=== PATIENT | male | born 1955 | race Caucasian/White ===

== ENCOUNTER 2021-01-08 07:30 | Outpatient (RCR) | payer MEDICARE, OTHER, SELFPAY ==
--- NOTE | 2020-11-30 09:45 | OTOPEVAL ---
OCCUPATIONAL THERAPY INITIAL EVALUATION REPORT 11/30/20 Thank you for referring Shahbaz Cobian to [facility].? The patient is scheduled to be seen for therapy?2x/week for 2 weeks then tapering down to 1x/week for 2 additional weeks. Please review, sign, date and return this plan of care ELVIA. I agree with and certify that the following plan of care is medically necessary. Referring Physician Date Referring Provider: Abraham Franklin MD *OT Outpatient Evaluation Start: 11/30/20 08:23 Therapy Assessment Status Assessment Status Assessment Status Evaluation Evaluation Information Problem Diagnosis Pain and swelling left middle finger Additional Evaluation Detail 10/12/20 - Open release left middle finger trigger finger 11/09/20 - Percutaneous revision of release of left 3rd A1 paulette Subjective Information Patient reports he is able to Query Text:As Reported By Patient/ do all the things he needs to Family do for himself, but with moderate pain. He states he has had to modify how he lifts and grabs objects. He does note difficulties with holding a wash rag and holding a golf club. Pain Assessment Timing of Pain Assessment Timing of Pain Assessment Assessment Pain Scale Pain Scale Used Numeric (1 - 10) Self Report Pain Assessment Left Hand(s) Reported Pain Level 0 Lowest Pain Intensity 0 Greatest Pain Intensity 10 Pain Score Pain Score 0: Self Report Additional Pain Score Comments Pain at rest: 0/10 Pain with light use: 2/10 Pain with heavy use/grippin/10 Pain at worst : 10/10 Interventions Used Pain Relief Interventions Used By Inactivity/Rest,Medication Patient Upper Extremity Range of Motion Finger Range of Motion Left Middle Finger MCP Joint Flexion - Active 75 Middle Finger MCP Joint Extension - 0 Active Middle Finger PIP Joint Flexion - Active 95 Middle Finger PIP Joint Extension - -25 Active Middle Finger DIP Joint Flexion - Active 70 Middle Finger DIP Joint Extension - -10 Active Finger Range of Motion Comments Tip to DPC: 0.5 cm gap actively; passive is WNL Thumb Range of Motion Left Reason Not Measured WFL/Left Hand Supervisor Electric/Pinch Strength Assessment Hand Right Supervisor Electric Strength (lbs) 112.33 Palmar Pinch Strength (lbs) 15 Left Supervisor Electric Str
--- NOTE | 2021-01-08 08:01 | OTOPEVAL ---
OCCUPATIONAL THERAPY RE-EVALUATION AND D/C NOTE 01/08/21 Patient presents for OT re-evaluation this date following 4 weeks of therapy for left hand pain, decreased ROM, and weakness following trigger finger release and subsequent revision. At this time, the patient's ROM, strength, and functional use have improved to normal limits. He continues to have some residual pain and tenderness in the surgical area, but reporting pain at 1/10 compared to 10/10 at the start of care. He is currently independent with HEP and ready for discharge. Thank you for referring Shahbaz Cobian to [facility] Please review, sign, date and return this D/C Note ELVIA. I agree with and certify that the following plan of care is medically necessary. Referring Physician Date Referring Provider: Abraham Franklin MD *OT Outpatient Re-Evaluation Start: 11/30/20 08:23 Evaluation Information Problem Diagnosis Pain and swelling left middle finger Additional Evaluation Detail 10/12/20 - Open release left middle finger trigger finger 11/09/20 - Percutaneous revision of release of left 3rd A1 paulette 11/30/20 - OT began, 6 sessions total; Therapy has consisted of using modalities and manual treatment for scar and pain management, ROM/tendon gliding, and patient education on not overusing the hand to help reduce tendon inflammation. Subjective Information Patient reports that he has Query Text:As Reported By Patient/ had less pain since beginning Family therapy. He reports, It's so much better. 90% there. 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 He returned to the gym and is able to do a bench press, swing a golf club, and hold a wash rag with a normal fist, but does note lingering sensitivity/ tenderness at the surgical site. Pain Assessment Timing of Pain Assessment Timing of Pain Assessment Re-assessment Pain Scale Pain Scale Used Numeric (1 - 10) Self Report Pain Assessment Left Hand(s) Reported Pain Level 0 Lowest Pain Intensity 0 Greatest Pain Intensity 1 Pain Aggravating Factors Exercise/Activity Other Pain Aggravating Factors Clapping, gripping tightly Pain
== END 2021-01-08 10:43 | disposition home or self-care (01) ==
LOC: ANHOT 07:30
PROVIDERS: PCP Family Medicine; Visit Provider Plastic Surgery
DX: Z48.89 Encounter for other specified surgical aftercare (principal)
CPT/HCPCS: 97018; 97035; 97110; 97140; 97165

== ENCOUNTER 2021-04-29 01:41 | Day surgery (SDC) | payer MEDICARE, OTHER, SELFPAY ==
[2021-04-23 13:38] VITALS: BMI 27.6
[2021-04-29 09:08] VITALS: BP 150/88; PULSE 71; RESP 16; TEMP 36.4; O2SAT 99; BMI 26.7
[2021-04-29] MEDS: LACTATED RINGERS 1,000 ML 150 ML IV CONT (09:20)
[2021-04-29 09:30] LABS: Glucose Point of Care 180 mg/dl (65-105)
--- NOTE | 2021-04-29 09:36 | WPDANESEPPF ---
Anes - Initial Pre Proc Eval Procedure: Operation Date: 04/29/21 09:45 Proposed Procedures p Screening Colonoscopy - Christopher Cooley MD Date/Time: 04/29/21 09:36 Surgeon: Christopher Cooley MD Pre Op Diagnosis: hx of colon polyps Z86.010, family hx of colon ca Patient Data Age: 66 Gender: M Height: 1.88 m Weight: 94.4 kg Last Vital Signs Temp 97.5 F L 04/29/21 09:08 Pulse 71 04/29/21 09:08 Resp 16 04/29/21 09:08 BP 150/88 H 04/29/21 09:08 Pulse Ox 99 04/29/21 09:08 Allergies Allergy/AdvReac Type Severity Reaction Status Date / Time Penicillins Allergy Unknown Skin Verified 04/23/21 13:35 Reaction Sulfa (Sulfonamide Allergy Unknown Skin Verified 04/23/21 13:35 Antibiotics) Reaction Home Medications Medication Instructions Recorded Confirmed Type cholecalciferol (vitamin D3) 50 50 mcg PO DAILY 01/07/20 04/29/21 History mcg (2,000 unit) capsule mecobalamin (vitamin B12) 1,000 1,000 mcg PO DAILY 01/07/20 04/29/21 History mcg chewable tablet multivitamin 1 tablet PO DAILY 01/07/20 04/29/21 History omega-3 fatty acids 1,000 mg 2,000 mg PO DAILY cap 01/07/20 04/29/21 History capsule metformin 500 mg tablet,extended 500 mg PO DAILY #90 tablet 02/22/21 04/29/21 Rx release 24 hr simvastatin 40 mg tablet 40 mg PO DAILY #90 tablet 02/22/21 04/29/21 Rx aspirin 81 mg PO DAILY 04/23/21 04/29/21 History diclofenac sodium 75 mg PO BID 04/23/21 04/29/21 History Laboratory Tests 04/29/21 09:27 POC Capillary Glucose 180 mg/dl H mg/dl (65-105) Patient hx anesthesia problems: none Family hx anesthesia problems: none PMFSH Past Medical History Medical History (Updated 02/22/21 @ 10:02 by Leandro Faulkner MD) Trigger finger, left surgery Surgical History Surgical History (Updated 02/22/21 @ 09:40 by [place] CMA) H/O hernia repair History of elbow surgery History of knee replacement Hx of arthroscopy of shoulder Status post trigger finger release Family History Family History Father Family history of malignant neoplasm of brain Family history of lung cancer Grandparent Cerebrovascular accident Carcinoma of colon Sibling Family history of hepatitis Social History Social History Smoking packs per day: 1 Smoking cigarettes per day: 20.0 Years smoked: 22 Smoking pack-years: 22.00 Smoking status: Former smoker Tobacco type: cigarettes Smoking end date: 04/04/90 Alcohol intake: current Drinks per week: 4 Living arrangements: with family Spiritual care concerns: No Anes - Eval Final PreProcedure Day of Procedure 04/29/21 09:36 Patient weight: overweight Heart: regular rate and rhythm Lungs: clear to auscultation Airway: Mallampati scale class II Neurological: alert and oriented Last oral intake: >/= 8 hours ASA classification: III Emergent: no Anesthetic plan: proceed Anesthesia type and monitoring: general GIVS and standard monitoring Informed Consent: The patient's anesthetic plan and its attendant risks and benefits were discussed with the patient/family/POA. Questions were solicited and answers provided to the satisfaction of the patient/family/POA.
--- NOTE | 2021-04-29 09:52 | WPDGICN ---
Assessment and Plan Assessment and plan (1) History of colon polyps: Code(s): Z86.010 - Personal history of colonic polyps Status: Acute Assessment and Plan: Patient has a prior history of colon polyps for this reason surveillance colonoscopy is recommended at 5 year intervals. (2) Family history of colonic polyps: Code(s): Z83.71 - Family history of colonic polyps Status: Acute Assessment and Plan: Patient's father is reported to have had colon polyps. His grandparent may have had colon cancer. Screening colonoscopy advised at intervals. GI Consult Note Consult date/time: 04/29/21 09:52 HPI: Shahbaz Cobian is a 66 year old male Presents for screening colonoscopy. Patient has a prior history of colon polyps. Most recent colonoscopy by Dr. Rogers was in 2014. Patient's family history is significant that her his father had colon polyps a grandparent may have had colon cancer. Patient reports that his current weight appetite bowel movements are normal. Patient denies abdominal pain. He has had no bleeding. Review of Systems Review of Systems: All systems reviewed & are unremarkable except as noted in HPI and below PMFSH Past Medical History Medical History (Updated 04/29/21 @ 09:54 by Christopher Cooley MD) Trigger finger, left surgery Surgical History Surgical History (Updated 02/22/21 @ 09:40 by Milla Park CMA) H/O hernia repair History of elbow surgery History of knee replacement Hx of arthroscopy of shoulder Status post trigger finger release Family History Family History Father Family history of malignant neoplasm of brain Family history of lung cancer Grandparent Cerebrovascular accident Carcinoma of colon Sibling Family history of hepatitis Social History Social History Smoking packs per day: 1 Smoking cigarettes per day: 20.0 Years smoked: 22 Smoking pack-years: 22.00 Smoking status: Former smoker Tobacco type: cigarettes Smoking end date: 04/04/90 Alcohol intake: current Drinks per week: 4 Living arrangements: with family Spiritual care concerns: No Meds Home Medications and Allergies Home Medications Medication Instructions Recorded Confirmed Type cholecalciferol (vitamin D3) 50 50 mcg PO DAILY 01/07/20 04/29/21 History mcg (2,000 unit) capsule mecobalamin (vitamin B12) 1,000 1,000 mcg PO DAILY 01/07/20 04/29/21 History mcg chewable tablet multivitamin 1 tablet PO DAILY 01/07/20 04/29/21 History omega-3 fatty acids 1,000 mg 2,000 mg PO DAILY cap 01/07/20 04/29/21 History capsule metformin 500 mg tablet,extended 500 mg PO DAILY #90 tablet 02/22/21 04/29/21 Rx release 24 hr simvastatin 40 mg tablet 40 mg PO DAILY #90 tablet 02/22/21 04/29/21 Rx aspirin 81 mg PO DAILY 04/23/21 04/29/21 History diclofenac sodium 75 mg PO BID 04/23/21 04/29/21 History Allergies Allergy/AdvReac Type Severity Reaction Status Date / Time Penicillins Allergy Unknown Skin Verified 04/23/21 13:35 Reaction Sulfa (Sulfonamide Allergy Unknown Skin Verified 04/23/21 13:35 Antibiotics) Reaction Vital Signs Vital Signs - 24 hr 04/29/21 09:08 Temperature 97.5 F L Pulse Rate 71 Respiratory Rate 16 Blood Pressure 150/88 H Pulse Oximetry 99 Exam Narrative: Physical exam reveals patient be alert. Vital signs stable. HEENT exam is unremarkable. Patient is anicteric. Lungs are clear to auscultation and percussion. Heart is without murmur or extra sounds. Abdominal exam bowel sounds are present soft nontender with no organomegaly. Digital external rectal exam is normal.
[2021-04-29 10:22] VITALS: BP 119/83; PULSE 65; RESP 24; O2SAT 97
[2021-04-29 10:32] VITALS: BP 112/86; PULSE 70; RESP 25; O2SAT 97
[2021-04-29 10:42] VITALS: BP 134/95; PULSE 65; RESP 15; O2SAT 99
== END 2021-04-29 10:54 | disposition home or self-care (01) ==
PROVIDERS: PCP Family Medicine; Visit Provider Internal Medicine Gastroenterology
PROC: 0DJD8ZZ Inspection of Lower Intestinal Tract, Via Natural or Artificial Opening Endoscopic (ICD-10-PCS; CPT 45378; principal; 2021-04-29 09:45)
DX: Z12.11 Encounter for screening for malignant neoplasm of colon (principal); K57.30 Diverticulosis of large intestine without perforation or abscess without bleeding; K64.8 Other hemorrhoids; Z86.010 Personal history of colon polyps; Z83.71 Family history of colonic polyps; Z96.659 Presence of unspecified artificial knee joint; Z87.891 Personal history of nicotine dependence; Z79.899 Other long term (current) drug therapy
CPT/HCPCS: G0105; 82948; J2704; J7120

== ENCOUNTER 2021-09-02 21:34 | Emergency (ER) | payer MEDICARE, OTHER, SELFPAY ==
--- NOTE | ~2021-09-02 | CT_ITS ---
EXAMINATION: CT brain wo con DATE: 09/03/2021 00:39 INDICATION: Left-sided headache. TECHNIQUE: Computed tomography (CT) of the head was performed without intravenous contrast. The mA wa s adjusted according to patient size. Iterative reconstruction technique was employed. The dose-lengt h product was 605.33 mGy-cm. COMPARISON: None FINDINGS: There is no intracranial hemorrhage, acute infarction, or abnormal intracranial mass lesion . There are scattered areas of low attenuation in the cerebral white matter. The ventricles are velia l in size. The orbits are normal. There is mild mucosal thickening in the ethmoid sinuses. The mastoi d air cells are normal. IMPRESSION: 1. Mild nonspecific cerebral white matter disease, which likely represents chronic small vessel ische ed disease. Reviewed, dictated and finalized at location A. ING TOWER OPERATOR IMPRESSION: 1. Mild nonspecific cerebral white matter disease, which likely represents data developer javier small vessel ischemic disease.
[2021-09-02 21:41] VITALS: BP 172/89; PULSE 79; RESP 16; TEMP 36.5; O2SAT 99
[2021-09-02 23:21] VITALS: BP 161/98; PULSE 70; RESP 16; O2SAT 98
[2021-09-03 00:17] VITALS: BP 141/87; PULSE 64; RESP 18; O2SAT 96
--- NOTE | 2021-09-03 00:53 | ED.HA ---
HPI - Headache General Chief Complaint: Headache Stated Complaint: headache Time Seen by Provider: 09/02/21 23:21 History of Present Illness HPI Narrative: Patient is a 66-year-old male who presents ER with headache. Reports he began earlier in the evening. Severe left-sided and stabbing. He took ibuprofen and it has now resolved. No focal neurologic deficit with this. No trauma. Reports he has had sinus congestion over the last couple weeks that has been increasing typical. He has had some thick green drainage that has now improved. No tearing or rhinorrhea with the headache. Related Data Home Medications Medication Instructions Recorded Confirmed cholecalciferol (vitamin D3) 50 50 mcg PO DAILY 01/07/20 08/10/21 mcg (2,000 unit) capsule mecobalamin (vitamin B12) 1,000 1,000 mcg PO DAILY 01/07/20 08/10/21 mcg chewable tablet multivitamin 1 tablet PO DAILY 01/07/20 08/10/21 omega-3 fatty acids 1,000 mg 2,000 mg PO DAILY cap 01/07/20 08/10/21 capsule aspirin 81 mg PO DAILY 04/23/21 08/10/21 pyridoxine (vitamin B6) 100 mg 50 mg PO DAILY 08/10/21 08/10/21 tablet Allergies Allergy/AdvReac Type Severity Reaction Status Date / Time Penicillins Allergy Unknown Skin Verified 09/02/21 21:46 Reaction Sulfa (Sulfonamide Allergy Unknown Skin Verified 09/02/21 21:46 Antibiotics) Reaction Review of Systems Review of Systems: All systems reviewed & are unremarkable except as noted in HPI and below Constitutional: Constitutional: Denies chills, Denies fever(s) and Denies weakness ENT: Denies nasal congestion and Denies sore throat Gastrointestinal: Gastrointestinal: Denies abdominal pain, Denies nausea and Denies vomiting Neurologic: Denies syncope, Reports headache(s), Denies focal weakness and Denies numbness Psychiatric: Psychiatric: Denies anxiety and Denies depression [facility] Past Medical History Medical History Trigger finger, left surgery Surgical History Surgical History H/O hernia repair History of elbow surgery History of knee replacement Hx of arthroscopy of shoulder Status post trigger finger release Family History Family History Father Family history of malignant neoplasm of brain Family history of lung cancer Grandparent Cerebrovascular accident Carcinoma of colon Sibling Family history of hepatitis Social History Social History Smoking packs per day: 1 Smoking cigarettes per day: 20.0 Years smoked: 22 Smoking pack-years: 22.00 Tobacco type: cigarettes Smoking end date: 04/04/90 Alcohol intake: current Drinks per week: 4 Spiritual care concerns: No Exam Narrative: GENERAL: Well-appearing, well-nourished, and in no acute distress. HEAD: Normocephalic, atraumatic. EYES: PERRL and EOMI. ENT: Mucous membranes moist. CHEST: Clear to auscultation. No respiratory distress. HEART: Regular rate and rhythm. Normal peripheral pulses. EXTREMITIES: Normal range of motion. No edema. SKIN: Warm, dry, no rash. NEURO: Alert and oriented x3. No focal neurologic deficit.. PSYCH: Normal mood and affect. Course Course Emergency Course: Informed results. Discharge home. Vital Signs Vital signs: Vital Signs Temperature 97.7 F 09/02/21 21:41 Pulse Rate 79 09/02/21 21:41 Respiratory Rate 16 09/02/21 21:41 Blood Pressure 172/89 H 09/02/21 21:41 Pulse Oximetry 99 09/02/21 21:41 Temperature 97.7 F 09/02/21 21:41 Pulse Rate 60 09/03/21 01:12 Respiratory Rate 14 09/03/21 01:12 Blood Pressure 144/82 H 09/03/21 01:12 Pulse Oximetry 100 09/03/21 01:12 MDM - Headache Imaging Data Radiologist's impression: CT head: No acute intracranial abnormality. Discharge Plan Discharge Clinical Impression: Headac
[2021-09-03 01:12] VITALS: BP 144/82; PULSE 60; RESP 14; O2SAT 100
[2021-09-03 02:01] VITALS: BP 144/82; PULSE 61; RESP 12; O2SAT 96
== END 2021-09-03 02:04 | disposition home or self-care (01) ==
PROVIDERS: Emergency Provider Emergency Medicine; PCP Family Medicine
DX: R51.9 Headache, unspecified (principal); Z96.659 Presence of unspecified artificial knee joint; Z87.891 Personal history of nicotine dependence; Z79.82 Long term (current) use of aspirin
CPT/HCPCS: 70450; 99284

== ENCOUNTER → 2022-06-10 09:54 | Outpatient (CLI) | payer MEDICARE, OTHER, SELFPAY ==
--- NOTE | ~2022-06-10 | XR_ITS ---
EXAMINATION: XR thoracic spine 3V DATE: 06/10/2022 10:19 INDICATION: Back pain. TECHNIQUE: 3 views of thoracic spine were obtained. COMPARISON: Chest 2 views 06/03/2016 FINDINGS: There is 5 degrees dextrocurvature of thoracic spine. There is kyphosis of thoracic spine. Again seen is mild chronic anterior wedging of T7, T8, and T11 vertebral bodies. There is mildly decr eased disc height at T7-T8 and T8-T9. There are endplate osteophytes at all levels. IMPRESSION: 1. Mild thoracic spondylosis. 2. Thoracic kyphosis. Reviewed, dictated and finalized at location B.
--- NOTE | ~2022-06-10 | XR_ITS ---
EXAMINATION: XR lumbar spine 2-3V DATE: 06/10/2022 10:19 INDICATION: Low back pain, unspecified. TECHNIQUE: 3 views of lumbar spine were obtained. COMPARISON: CT abdomen and pelvis 07/28/2010 FINDINGS: There is 4 degrees levocurvature of lumbar spine. There is mildly decreased disc height at L3-L4 and L5-S1. There are endplate osteophytes at all levels. There is multilevel mild to moderate f acet joint osteoarthritis. IMPRESSION: 1. Mild lumbar spondylosis. Reviewed, dictated and finalized at location B. IMPRESSION: 1. Mild lumbar spondylosis.
== END ==
PROVIDERS: PCP Physician Assistant; Visit Provider Physician Assistant
DX: M47.896 Other spondylosis, lumbar region (principal); M47.894 Other spondylosis, thoracic region
CPT/HCPCS: 72072; 72100

== ENCOUNTER → 2023-02-21 13:29 | Outpatient (CLI) | payer MEDICARE, OTHER, SELFPAY ==
--- NOTE | ~2023-02-21 | XR_ITS ---
Right Hand Technique: PA, oblique, and lateral views were obtained. Clinical History: Osteoarthritis Findings: No acute fracture or dislocation is seen. Osseous alignment is anatomic. There is minimal d egenerative change at the interphalangeal joint of the thumb. Remaining joint spaces appear intact. S oft tissues are unremarkable. Impression: Minimal degenerative change at the interphalangeal joint of the thumb. Reviewed, dictated and finalized at location M. Impression: Minimal degenerative change at the interphalangeal joint of the thumb.
== END ==
PROVIDERS: PCP Plastic Surgery; Visit Provider Plastic Surgery
DX: M19.041 Primary osteoarthritis, right hand (principal)
CPT/HCPCS: 73130

== ENCOUNTER 2023-06-23 07:30 | Outpatient (CLI) | payer MEDICARE, OTHER, SELFPAY ==
--- NOTE | 2023-06-23 08:27 | ECG_ITS ---
Measurements Intervals [place]way Rate: 60 P: 17 AK: 203 QRS: 39 QRSD: 99 T: 43 QT: 372 QTc: 372 Interpretive Statements SINUS RHYTHM NO PREVIOUS ECG AVAILABLE FOR COMPARISON Electronically Signed On 06-23-2023 13:34:32 CDT by April Pena MD
[2023-06-23 09:01] LABS: Basophils Percent Auto 0.4 % (0.2-1.2); Eosinophils Absolute Auto 0.1 K/mm3 (0-0.3); Hematocrit 43.7 % (42.0-52.0); Hemoglobin 14.6 g/dL (14.0-18.0); Immature Granulocyte Absolute 0.01 K/mm3 (0.00-0.031); Immature Granulocyte Percent A 0.2 % (0-0.5); Lymphocytes Absolute Auto 1.56 K/mm3 (0.9-3.2); Lymphocytes Percent Auto 31.8 % (18.3-44.2); Mean Corpuscular HGB Conc 33.4 g/dl (32-36); Mean Corpuscular Hemoglobin 30.4 pg (26-34); Mean Platelet Volume 10.1 fl (7.4-10.4); Monocytes Absolute Auto 0.5 K/mm3 (0.1-0.6); Monocytes Percent Auto 9.2 % (2.6-8.5); Neutrophils Absolute Auto 2.8 K/mm3 (1.3-6.7); Neutrophils Percent Auto 57.4 % (45.5-73.1); Platelet Count Result 202 k/mm3 (150-375); Red Cell Distribution Width 12.7 % (11.5-14.5); White Blood Count 4.9 K/mm3 (4.5-10.0)
[2023-06-23 09:10] LABS: Albumin Level 4.7 g/dL (3.5-5.1); Anion Gap 7 mmol/L (8-16); Blood Urea Nitrogen 21 mg/dL (9-20); Calcium 9.4 mg/dL (8.4-10.2); Carbon Dioxide 29 mmol/L (22-30); Chloride 102 mmol/L (98-107); Estimated Glomerular Filt Rate > 60; Glucose 132 mg/dL (65-110); Potassium 4.4 mmol/L (3.4-5.0); Sodium 138 mmol/L (137-145)
[2023-06-23 09:14] LABS: Urine Cotinine NEGATIVE
== END 2023-06-23 07:31 | disposition home or self-care (01) ==
LOC: ANHSURGERY 07:42
PROVIDERS: PCP Family Medicine; Visit Provider Orthopaedic Surgery
DX: M17.12 Unilateral primary osteoarthritis, left knee (principal); Z01.818 Encounter for other preprocedural examination
CPT/HCPCS: 80048; 80307; 82040; 83036; 85025; 87081; 87147; 87181; 87186; 93005

== ENCOUNTER 2023-08-02 08:08 | Outpatient (CLI) | payer MEDICARE, OTHER, SELFPAY | END 2023-08-02 08:09 | disposition home or self-care (01) | LOC: ANHSURGERY 08:15 | PROVIDERS: PCP Family Medicine; Visit Provider Orthopaedic Surgery | DX: M17.12 Unilateral primary osteoarthritis, left knee (principal); Z01.818 Encounter for other preprocedural examination | CPT/HCPCS: 36415; 86850; 86900; 86901 ==

== ENCOUNTER 2023-08-07 01:55 | Day surgery (SDC) | payer MEDICARE, OTHER, SELFPAY ==
--- NOTE | 2023-06-23 07:34 | PC.NURSE ---
PRE-OP INSTRUCTIONS, PLEASE READ CAREFULLY Report to the Outpatient Waiting Room, entrance under the green pavilion located off [facility], at time _0600_ on date _07/17/23_. Planned Procedure Time: _0730_. PACK A SMALL OVERNIGHT BAG AND LEAVE IN THE CAR ALONG WITH YOUR WALKER Time changes happen often and if your time is changed the preop area will call you the afternoon before. - You and your visitor will be asked to self-screen and do not enter if you have any COVID symptoms. - A mask is optional within the hospital at this time. -VISITING HOURS 8AM-8PM Patients may have clear liquids (water, carbonated beverages, clear teas, apple juice) until 3 hours prior to surgery (0430 AM) with a maximum of 20 ounces. - No food from midnight until time of surgery Take the following medications with a SIP of water the morning of surgery: _TYLENOL IF NEEDED_ DO NOT STOP ANY OF YOUR OTHER PRESCRIPTION MEDICATIONS PRIOR TO SURGERY ?EXCEPT THE FOLLOWING Medications to discontinue per DR. LEY - _VITAMINS/SUPPLEMENTS/IBUPROFEN 7 DAYS PRIOR TO SURGERY, Date to take last dose 07/09/23 (PER PT)_ Please no make-up, nail serbian, hairspray, perfume, deodorant, or body powder the day of surgery. No jewelry (including any body piercings) or valuables the day of surgery, leave them at home. Please take a shower or bath the night before, or the morning of, surgery with an antibacterial soap. Wear comfortable, loose fitting clothing. - Jewelry must be removed prior to entering the operating room. Rings and piercings that are not removed may be cut off. - The hospital will not accept responsibility for valuables. - Please leave all valuables, including medications, at home the day of surgery. If you are going home after surgery, a licensed local truck driver must drive you home. - NO public transportation without another adult if you receive anesthesia. - We recommend that an adult stay with you for 24 hours following discharge. - We also recommend that you do not drive, make important decision, drink alcoholic beverages, or take any drugs that were not prescribed by your health care provider for at least 24 hours after your discharge time. Follow any additional instructions given to you from your surgeon. If you or anyone in your household have experienced Covid symptoms in the past week, please notify your surgeon or the nurse liaison at the phone number below for possible testing. Instructions given to _PATIENT_and asked if any additional questions and then verbalized understanding. Patient advised to call surgeon office or pre surgery nurse liaison [phone] if any additional questions.
[2023-06-23 08:03] VITALS: BP 130/74; PULSE 68; RESP 20; TEMP 36.7; O2SAT 100; BMI 26.3
--- NOTE | 2023-07-31 14:01 | PC.NURSE ---
Report to the Outpatient Waiting Room, entrance under the green pavilion located off [facility], at time _0600_ on date _[id number]_. Planned Procedure Time: _0730_. Time changes happen often and if your time is changed the preop area will call you the afternoon before. - You and your visitor will be asked to self-screen and do not enter if you have any COVID symptoms. - A mask is optional within the hospital at this time. Patients may have clear liquids (water, carbonated beverages, clear teas, apple juice) until 3 hours prior to surgery with a maximum of 20 ounces. - No food from midnight until time of surgery Take the following medications with a SIP of water the morning of surgery: __None DO NOT STOP ANY OF YOUR OTHER PRESCRIPTION MEDICATIONS PRIOR TO SURGERY ?EXCEPT THE FOLLOWING Medications to discontinue per physician __All vitamins Date to take last zeuw___[id number] Please no make-up, nail belarusian, hairspray, perfume, deodorant, or body powder the day of surgery. No jewelry (including any body piercings) or valuables the day of surgery, leave them at home. Please take a shower or bath the night before, or the morning of, surgery with an antibacterial soap. Wear comfortable, loose fitting clothing. - Jewelry must be removed prior to entering the operating room. Rings and piercings that are not removed may be cut off. - The hospital will not accept responsibility for valuables. - Please leave all valuables, including medications, at home the day of surgery. If you are going home after surgery, a licensed horse and wagon driver must drive you home. - NO public transportation without another adult if you receive anesthesia. - We recommend that an adult stay with you for 24 hours following discharge. - We also recommend that you do not drive, make important decision, drink alcoholic beverages, or take any drugs that were not prescribed by your health care provider for at least 24 hours after your discharge time. Follow any additional instructions given to you from your surgeon. If you or anyone in your household have experienced Covid symptoms in the past week, please notify your surgeon or the nurse liaison at the phone number below for possible testing. Telephone instructions given to __Joseph__and asked if any additional questions and then verbalized understanding. Patient advised to call surgeon office or pre surgery nurse liaison [phone] if any additional questions.
--- NOTE | 2023-08-04 08:00 | PM.IMHP ---
H&P: HPI History of Present Illness Date/Time: 08/04/23 08:00 Chief Complaint: Left knee DJD Narrative: 68-year-old male patient of Dr. Salazar who presents today for a left total knee arthroplasty. Patient has moderately severe patellofemoral osteoarthritis. He has been treating this nonsurgically for several years. At this point he is not getting improvement from nonsurgical treatment. He has been taking ibuprofen 600 mg twice a day. He had a Monovisc injection in February of this year with minimal improvement of his symptoms. At this point he feels he is ready proceed with total knee arthroplasty rather than continue nonsurgical treatment. Review of Systems Review of Systems: All systems reviewed & are unremarkable except as noted in HPI and below PMFSH Past Medical History Medical History Trigger finger, left surgery Surgical History Surgical History H/O hernia repair History of elbow surgery History of knee replacement Hx of arthroscopy of shoulder Status post trigger finger release Family History Family History Father Family history of malignant neoplasm of brain Family history of lung cancer Grandparent Cerebrovascular accident Carcinoma of colon Sibling Family history of hepatitis Social History Social History Social History: Caffeine-daily Smoking packs per day: 1 Smoking cigarettes per day: 20.0 Years smoked: 22 Smoking pack-years: 22.00 Smoking status: Former smoker Tobacco type: cigarettes Second hand tobacco smoke exposure: No Smoking end date: 04/04/90 Additional smoking assessment comments: PT DENIES ALL FORMS OF TOBACCO USE Alcohol intake: current Drinks per week: 4 Alcohol use details: beer/wine Substance use: never Substance use type: does not use Lack of Transportation: No Lack of Food: Never True Current Housing: I Have Housing Concerned About Future Housing: No Difficulty Paying Gas/Electric Bills: No Difficulty Paying for Meds: No Currently Unemployed: No Education: Bachelor's Degree Difficulty w/ Childcare or Family Care: No Living arrangements: with family Spiritual care concerns: No Meds Home Medications and Allergies Home Medications Medication Instructions Recorded Confirmed Type multivitamin 1 tablet PO DAILY 05/05/20 11/27/23 History metformin 500 mg tablet,extended See Rx Instructions .Route 06/19/23 07/31/23 Rx release 24 hr .COMPLEX #180 tabs olmesartan 20 mg tablet See Rx Instructions .Route 06/19/23 07/31/23 Rx .COMPLEX #90 tabs simvastatin 40 mg tablet See Rx Instructions .Route 06/19/23 07/31/23 Rx .COMPLEX #90 tabs cholecalciferol (vitamin D3) 50 50 mcg PO DAILY 07/31/23 07/31/23 History mcg (2,000 unit) tablet (Vitamin D3) cyanocobalamin (vitamin B-12) 1,000 mcg PO DAILY 07/31/23 07/31/23 History 1,000 mcg tablet (Vitamin B-12) omega 7-ykd-kxp-fish oil 1,200 mg 1 cap PO BID 07/31/23 07/31/23 History (144 mg-216 mg) capsule (Fish Oil) Allergies Allergy/AdvReac Type Severity Reaction Status Date / Time Penicillins Allergy Unknown SERVERE Verified 07/31/23 13:54 HIVES Sulfa (Sulfonamide Allergy Unknown SERVERE Verified 07/31/23 13:54 Antibiotics) HIVES Exam Narrative: 68-year-old male he is 6 ft 2 and 215 lb. He has trace effusion the left knee. Range of motion is from 0-140 degrees. He has normal stability in the knee. There is no tenderness over the medial or lateral joint line. He has severe pain with patellofemoral grind and inhibition testing. Hip range of motion is full without discomfort. Negative Stinchfield maneuver. There is no edema in the lower extremities. He has normal sensation to light touch to both lower extremitie
[2023-08-07] VITALS (12 sets, daily range): BP systolic 114–159; BP diastolic 60–98; PULSE 63–97; RESP 14–21; TEMP 36.4–36.6; O2SAT 96–100
--- NOTE | ~2023-08-07 | XR_ITS ---
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 Subcutaneous gas with fluid and air in the joint and overlying skin turner are consistent with recent surgery. No evidence of pe riprosthetic fracture. IMPRESSION: 1. Recent left total knee arthroplasty. Reviewed, dictated and finalized at location B. INSTRUCTOR
[2023-08-07] MEDS: ACETAMINOPHEN 500 MG TABLET 1000 MG PO ×3 (06:29→20:27)
[2023-08-07] MEDS: LACTATED RINGERS 1,000 ML 30 ML IV CONT ×2 (06:40→11:38)
[2023-08-07 07:00] LABS: Glucose Point of Care 150 mg/dl (65-105)
--- NOTE | 2023-08-07 07:12 | WPDANESEPPF ---
Anes - Initial Pre Proc Eval Procedure: Operation Date: 08/07/23 07:30 Proposed Procedures p Left Total Knee Arthroplasty - Emil Morales MD Date/Time: 08/07/23 07:12 Surgeon: Emil Morales MD Pre Op Diagnosis: O A Lt knee Patient Data Age: 68 Gender: M Height: 1.88 m Weight: 90.8 kg Last Vital Signs Temp 98.0 F 06/23/23 08:03 Pulse 68 06/23/23 08:03 Resp 20 06/23/23 08:03 BP 130/74 06/23/23 08:03 Pulse Ox 100 06/23/23 08:03 O2 Del Method Room Air 06/23/23 08:03 Allergies Allergy/AdvReac Type Severity Reaction Status Date / Time Penicillins Allergy Unknown SERVERE Verified 08/07/23 06:14 HIVES Sulfa (Sulfonamide Allergy Unknown SERVERE Verified 08/07/23 06:14 Antibiotics) HIVES Home Medications Medication Instructions Recorded Confirmed Type multivitamin 1 tablet PO DAILY 01/07/20 08/07/23 History metformin 500 mg tablet,extended See Rx Instructions .Route 06/19/23 08/07/23 Rx release 24 hr .COMPLEX #180 tabs olmesartan 20 mg tablet See Rx Instructions .Route 06/19/23 08/07/23 Rx .COMPLEX #90 tabs simvastatin 40 mg tablet See Rx Instructions .Route 06/19/23 08/07/23 Rx .COMPLEX #90 tabs cholecalciferol (vitamin D3) 50 50 mcg PO DAILY 07/31/23 08/07/23 History mcg (2,000 unit) tablet (Vitamin D3) cyanocobalamin (vitamin B-12) 1,000 mcg PO DAILY 07/31/23 08/07/23 History 1,000 mcg tablet (Vitamin B-12) omega 7-qbb-exc-fish oil 1,200 mg 1 cap PO BID 07/31/23 08/07/23 History (144 mg-216 mg) capsule (Fish Oil) Laboratory Tests 08/07/23 06:56 POC Capillary Glucose 150 H mg/dl (65-105) Patient hx anesthesia problems: none Family hx anesthesia problems: none Results Review: All pre-operative results and documents have been reviewed as part of the pre-operative evaluation. [facility] Past Medical History Medical History Trigger finger, left surgery Surgical History Surgical History H/O hernia repair History of elbow surgery History of knee replacement Hx of arthroscopy of shoulder Status post trigger finger release Family History Family History Father Family history of malignant neoplasm of brain Family history of lung cancer Grandparent Cerebrovascular accident Carcinoma of colon Sibling Family history of hepatitis Social History Social History Social History: Caffeine-daily Smoking packs per day: 1 Smoking cigarettes per day: 20.0 Years smoked: 22 Smoking pack-years: 22.00 Smoking status: Former smoker Tobacco type: cigarettes Second hand tobacco smoke exposure: No Smoking end date: 04/04/90 Additional smoking assessment comments: PT DENIES ALL FORMS OF TOBACCO USE Alcohol intake: current Drinks per week: 4 Alcohol use details: beer/wine Substance use: never Substance use type: does not use Lack of Transportation: No Lack of Food: Never True Current Housing: I Have Housing Concerned About Future Housing: No Difficulty Paying Gas/Electric Bills: No Difficulty Paying for Meds: No Currently Unemployed: No Education: Bachelor's Degree Difficulty w/ Childcare or Family Care: No Living arrangements: with family Spiritual care concerns: No Anes - Eval Final PreProcedure Day of Procedure 08/07/23 07:12 Patient weight: normal Heart: regular rate and rhythm Lungs: clear to auscultation Airway: Mallampati scale class III Neurological: alert and oriented Last oral intake: >/= 8 hours ASA classification: III Emergent: no Anesthetic plan: proceed Anesthesia type and monitoring: general ETT and standard monitoring Results Review: All pre-operative results and documents have been reviewed as part of the pre-operative evaluation
[2023-08-07] MEDS: TRANEXAMIC ACID 1,000MG/ISO100 1,000 MG/100 ML BAG 200 MG IVPB (07:22)
[2023-08-07] MEDS: ceFAZolin 2 GM/D5W 50 ML 2 GM/50 ML BAG IVPB (07:39)
[2023-08-07] MEDS: ceFAZolin SODIUM 1 GM VIAL 3 GM (08:00)
[2023-08-07] MEDS: TRANEXAMIC ACID 1,000 MG/10 ML AMPUL 1000 MG IV PUSH (10:32)
[2023-08-07] MEDS: ceFAZolin SODIUM 1 GM VIAL IV PUSH (10:32)
--- NOTE | 2023-08-07 11:27 | W.PM.PROC2 ---
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 The left knee was prepped draped usual the usual fashion. Received 2 g of Ancef weight based vancomycin 1 g of TXA preoperatively. Limb was exsanguinated tourniquet elevated to 250 mmHg. 7 in longitudinal midline incision was used. His skin was on the thinner side and I felt that standard parapatellar approach would be safest. This was performed. Infrapatellar fat pad partially excised quadriceps synovectomy carried out. The patella was severely worn centrally. There is milder cartilage loss in the lateral femoral condyle 1 area of full-thickness cartilage loss central lateral trochlear ridge. The patella measured 21 mm in thickness measuring off the central eburnation of bone and we cut the patella to 15 mm. Bone quality was very good. Protector cap applied. A guide alex was inserted down the femoral canal after aspiration of canal contents using the 5 degree valgus cutting bushing 9 mm of bone removed the distal femur. Next the tibial plateau was cut. Initial cut was just under the articular surface. PCL was recessed meniscal remnants were excised and 90? we were too tight medially to insert the 8 mm spacer block. Therefore an additional 2 mm of bone removed from the tibial plateau. Alignment was confirmed. This allowed the 8 mm spacer block medially at 90? and laterally the gap was 14 mm. This was an unusual amount of distraction the lateral compartment side. Lateral capsule IT band structures were still intact. Popliteus was preserved. Femur was sized and I elected to use 5? of external rotation. The size 70 vanguard seemed to be the proper with but this was going to notch so we used the 72.5 AP and chamfer cuts were made. 72.5 was a little too wide. This point we were still looser laterally at 90? than medially. The tibia was sized to a size 75 which fit line to line anteromedial to posterolateral at proper rotation this was punched and we trialed with the 10 . This had appropriate tightness medially but was a bit loose laterally. I felt that there would be better medial to lateral balance in flexion by incorporating additional external rotation on the femur. The other 1 option would be to release medial capsule but he does not have a varus deformity preoperatively that would have led him a left him loose medially in extension. We removed the medial fixation pin from the size 70 cutting block and seated at externally rotating at 2? and pinning it with spring pins into place in this allowed us to remove another mm and half To 2 mm of bone posteriorly from the medial side and minimized any notching as result. chamfer cuts revisited and we trialed with the 11 . The 12 seemed a little bit snug in flexion. lacking full extension, An additional 2 mm of bone removed the distal femur and on re trialing the knee had a barely positive bounce lacking removed the degree of or 2 of extension with no significant varus valgus play you have in extension therefore an additional mm and half of bone was removed the distal femur using the 3 mm cutting slot and on read trialing knee came out to full extension with 2 mm of medial lateral play who valgus and varus stress. Posterior femoral bone had been already removed. Satisfied with this the lug holes were drilled in the femur and the patella was prepared for a 34 thin patella lug holes drilled. We had put the tourniquet down at 90 minutes earlier and at this point the limb was exsanguinated and tourniquet elevated to 250 mmHg. Step drill was used to make multiple perforations in his distal femur and 2 plateau which had excellent bone quality and density. The bony surfaces were
--- NOTE | 2023-08-07 11:46 | PM.OP ---
Procedure Note - Brief Procedure Note - Brief Date of procedure: 08/07/23 O A Lt knee Procedure performed: Left total knee arthroplasty Surgeon: KRISTIN Quintero Findings: 68-year-old male who underwent left total knee on the plan is the on 08/07. I was involved in the procedure including positioning the patient on the OR table as well his 1st assisting through the time surgery. Total time spent with 3-1/2 hours
[2023-08-07] MEDS: fentaNYL CITRATE INJ (*CRX) 100 MCG/2 ML VIAL 25 MCG IV PUSH ×7 (11:48→12:21)
[2023-08-07] MEDS: KETOROLAC 15 MG/ML VIAL (*BKC) IV PUSH ×3 (12:10→18:36)
[2023-08-07 12:18] LABS: Glucose Point of Care 197 mg/dl (65-105)
[2023-08-07] MEDS: HYDROmorphone HCL INJ (*CRX) 1 MG/ML SYR 0.5 MG IV PUSH ×3 (12:28→12:50)
[2023-08-07] MEDS: SODIUM CHLORIDE 0.9% IV 1,000 ML 125 ML IV CONT (13:51)
[2023-08-07] MEDS: oxyCODONE HCL (*CRX) 5 MG TAB IR PO ×3 (13:52→20:28)
--- NOTE | 2023-08-07 14:02 | ADMGEN ---
This patient, Shahbaz Cobian, was admitted to [address] [place] [address] Room 310-01. Patient/family oriented to hospital policies and general routines including ID bracelet, bed and alarms, visiting hours, pain management, procedures, bathroom and other care routines, personal items, smoking policy, room service/diet, and visiting hours. Information on how to activate the Rapid Response Team has been discussed. Patient/Family are encouraged to report perceived risks to care and to ask questions if they do not understand what they are told or what they should do.
[2023-08-07] MEDS: metFORMIN HCL XR 500 MG TAB.SR.24H PO (16:22)
[2023-08-07] MEDS: ceFAZolin 1 GM/NS 50 ML 1 GM/50 ML BAG IVPB (16:22)
[2023-08-07] MEDS: SENNA/DOCUSATE SODIUM TABLET 2 TAB PO (16:22)
[2023-08-07] MEDS: VANCOMYCIN 1,000 MG/NS 250 ML 1,000 MG/250 ML BAG 250 MG IVPB (17:54)
[2023-08-07] MEDS: SIMVASTATIN 20 MG TABLET 40 MG BY MOUTH (20:27)
[2023-08-07] MEDS: FAMOTIDINE 20 MG TABLET PO (20:27)
[2023-08-08 00:18] VITALS: BP 153/85; PULSE 76; RESP 16; TEMP 36.1; O2SAT 100
[2023-08-08] MEDS: ceFAZolin 1 GM/NS 50 ML 1 GM/50 ML BAG IVPB ×2 (00:58→08:17)
[2023-08-08] MEDS: ACETAMINOPHEN 500 MG TABLET 1000 MG PO ×3 (01:04→14:44)
[2023-08-08] MEDS: oxyCODONE HCL (*CRX) 5 MG TAB IR PO ×5 (01:04→14:44)
[2023-08-08 04:17] VITALS: BP 145/78; PULSE 73; RESP 16; TEMP 36.1; O2SAT 99
[2023-08-08] MEDS: VANCOMYCIN 1,000 MG/NS 250 ML 1,000 MG/250 ML BAG 250 MG IVPB (06:00)
[2023-08-08 06:58] LABS: Basophils Percent Auto 0.1 % (0.2-1.2); Eosinophils Percent Auto 0.1 % (0-4.4); Hematocrit 35.9 % (42.0-52.0); Hemoglobin 12.2 g/dL (14.0-18.0); Immature Granulocyte Absolute 0.07 K/mm3 (0.00-0.031); Immature Granulocyte Percent A 0.5 % (0-0.5); Lymphocytes Percent Auto 14.7 % (18.3-44.2); Mean Corpuscular Volume 91.1 fl (80-100); Mean Platelet Volume 9.7 fl (7.4-10.4); Monocytes Absolute Auto 1.1 K/mm3 (0.1-0.6); Monocytes Percent Auto 7.6 % (2.6-8.5); Neutrophils Absolute Auto 11.5 K/mm3 (1.3-6.7); Platelet Count Result 196 k/mm3 (150-375); Red Blood Count 3.94 M/mm3 (4.6-6.20); Red Cell Distribution Width 12.8 % (11.5-14.5)
[2023-08-08 07:12] LABS: Alanine Aminotransferase 25 U/L (6-50); Alkaline Phosphatase 41 U/L (38-126); Anion Gap 7 mmol/L (8-16); Aspartate Amino Transferase 24 U/L (17-59); Bilirubin,Total 0.7 mg/dL (0.2-1.3); Blood Urea Nitrogen 21 mg/dL (9-20); Calcium 8.9 mg/dL (8.4-10.2); Carbon Dioxide 26 mmol/L (22-30); Chloride 104 mmol/L (98-107); Estimated CRCL calculation 88 ml/min; Estimated Glomerular Filt Rate > 60; Glucose 125 mg/dL (65-110); Potassium 4.5 mmol/L (3.4-5.0); Sodium 137 mmol/L (137-145)
--- NOTE | 2023-08-08 07:27 | P.PNAN_ITS ---
Anes - Prog Note Post-Op Date/Time: 08/08/23 07:27 Cardiovascular status: normal Respiratory status: normal Airway patency: baseline Mental status: baseline Post-Op hydration status: normal Vital Signs: Last Vital Signs Temp 36.1 C L 08/08/23 04:17 Pulse 73 08/08/23 04:17 Resp 16 08/08/23 04:17 BP 145/78 H 08/08/23 04:17 Pulse Ox 99 08/08/23 04:17 O2 Del Method Room Air 08/07/23 15:05 O2 Flow Rate 10 08/07/23 11:38 Pain Score (VAS): 3 I/O: Intake & Output 08/07/23 08/07/23 08/08/23 15:59 23:59 07:59 Intake Total 1050 540 600 Output Total 3400 Balance 1050 540 -2800 Laboratory Tests 08/08/23 06:29 08/08/23 06:29 08/07/23 08/08/23 12:16 06:29 WBC 15.0 H RBC 3.94 L Hgb 12.2 L Hct 35.9 L MCV 91.1 MCH 31.0 MCHC 34.0 RDW 12.8 Plt Count 196 MPV 9.7 Immature Gran % (Auto) 0.5 Neut % (Auto) 77.0 H Lymph % (Auto) 14.7 L [place] % (Auto) 7.6 Eos % (Auto) 0.1 Baso % (Auto) 0.1 L Lymph # (Auto) 2.20 [place] # (Auto) 1.1 H Eos # (Auto) 0.0 Baso # (Auto) 0.0 Abs Immat Gran (auto) 0.07 H Absolute Neuts (auto) 11.5 H Absolute Nucleated RBC 0.0 Nucleated RBC % 0.0 Sodium 137 Potassium 4.5 Chloride 104 Carbon Dioxide 26 Anion Gap 7 L BUN 21 H Creatinine 0.80 Estim Creat Clear Calc 88 Estimated GFR > 60 Glucose 125 H POC Capillary Glucose 197 H Calcium 8.9 Total Bilirubin 0.7 AST 24 ALT 25 Alkaline Phosphatase 41 Total Protein 6.0 L Albumin 4.0 Post-procedural complaints: none Patient Feedback: Patient satisfied with anesthetic care.
[2023-08-08] MEDS: SENNA/DOCUSATE SODIUM TABLET 2 TAB PO (08:17)
[2023-08-08] MEDS: FAMOTIDINE 20 MG TABLET PO (08:17)
[2023-08-08] MEDS: APIXABAN 2.5 MG TABLET PO (08:17)
[2023-08-08] MEDS: MELOXICAM 7.5 MG TABLET PO (08:17)
[2023-08-08] MEDS: CHOLECALCIFEROL 1,000 UNITS TABLET 2000 UNITS PO (08:17)
[2023-08-08] MEDS: metFORMIN HCL XR 500 MG TAB.SR.24H PO (08:17)
[2023-08-08] MEDS: OLMESARTAN MEDOXOMIL 20 MG TABLET BY MOUTH (08:18)
[2023-08-08] MEDS: polyethylene glycoL 3350 17 GM POWD.PACK PO (08:18)
[2023-08-08 10:52] VITALS: BP 133/64; PULSE 82; RESP 20; TEMP 36.7; O2SAT 99
--- NOTE | 2023-08-08 11:05 | PM.PNORT ---
Progress Note: A&P Assessment and Plan (1) History of left knee replacement: Code(s): Z96.652 - Presence of left artificial knee joint Status: Acute Plan patient is doing very well postop day 1 status post left total knee arthroplasty. He is ready for discharge to home. We talked in detail today about elevating his leg above the heart as much as possible weight-bearing status in the multiple medications he will be discharged on which will be in the discharge summary and orders. He will follow up with Dr. Morales in 2 weeks as instructed to call the office immediately for any further problems difficulties or questions he voiced understanding and agrees with above plan. He will be discharged today after lunch in physical therapy. Subjective Subjective Date/Time Seen: 08/08/23 11:05 Interval history: patient is postop day 1 status post left total knee arthroplasty doing very well today. Has no complaints is quite pleased with his postop result so far. Pain is well controlled. He is hungry ready to eat breakfast soft well denies any other complaints. He is ready for discharge to home later today. Review of Systems Review of Systems: Ten point review of systems negative. Exam Narrative: Vital signs stable afebrile neurovascular the patient is intact left knee wound clean and dry calves are benign. The patient is alert oriented x3. Normal mood and affect. Able to get up and ambulate well with a walker. Pain is well controlled. Objective Data Vital Signs Vital Signs: Vital Signs - 24 hr 08/07/23 11:38 08/07/23 11:50 08/07/23 12:05 Temperature 36.6 C Pulse Rate 97 90 90 Respiratory Rate 14 16 18 Blood Pressure 158/98 H 159/82 H 158/80 H Pulse Oximetry 99 99 98 Oxygen Delivery Simple Face Mask Room Air Room Air Oxygen Flow Rate 10 08/07/23 12:20 08/07/23 12:35 08/07/23 12:50 Temperature Pulse Rate 91 87 78 Respiratory Rate 21 H 18 18 Blood Pressure 147/86 H 138/80 134/76 Pulse Oximetry 100 100 98 Oxygen Delivery Room Air Room Air Room Air Oxygen Flow Rate 08/07/23 13:05 08/07/23 13:30 08/07/23 13:45 Temperature Pulse Rate 81 75 85 Respiratory Rate 14 20 20 Blood Pressure 131/68 130/78 115/61 Pulse Oximetry 100 98 97 Oxygen Delivery Room Air Oxygen Flow Rate 08/07/23 14:15 08/07/23 14:45 08/07/23 15:05 Temperature Pulse Rate 78 Respiratory Rate 16 Blood Pressure 126/62 Pulse Oximetry 97 Oxygen Delivery Room Air Room Air Oxygen Flow Rate 08/07/23 15:15 08/07/23 20:29 08/08/23 00:18 Temperature 36.4 C 36.1 C L Pulse Rate 63 87 76 Respiratory Rate 18 16 16 Blood Pressure 122/72 114/60 153/85 H Pulse Oximetry 98 96 100 Oxygen Delivery Oxygen Flow Rate 08/08/23 04:17 Temperature 36.1 C L Pulse Rate 73 Respiratory Rate 16 Blood Pressure 145/78 H Pulse Oximetry 99 Oxygen Delivery Oxygen Flow Rate Intake/Output Intake/Output: Intake & Output 08/05/23 08/06/23 08/07/23 08/08/23 23:59 23:59 23:59 23:59 Intake Total 1690 1560 Output Total 3400 Balance 1690 -1840 Meds/Results Medications: Active Medications Generic Name Dose Route Start Last Admin Trade Name Philipq PRN Reason Stop Dose Admin Acetaminophen 1,000 mg 08/07/23 14:00 08/08/23 08:18 Acetaminophen 500 Mg Tablet PO 1,000 mg Q6H DONTA Administration Apixaban 2.5 mg 08/08/23 09:00 08/08/23 08:17 Apixaban 2.5 Mg Tablet PO 08/19/23 21:01 2.5 mg Q12HR DONTA Administration Cephalexin HCl 500 mg 08/08/23 12:00 Cephalexin 500 Mg Capsule PO Q6HR DONTA Diphenhydramine HCl 25 mg 08/07/23 13:07 Diphenhydramine Hcl Inj 50 Mg/Ml Vial IV PUSH Q6H PRN Itching Famotidine 20 mg 08/07/23 21:00 08/08/23 08:17 Famotidine 20 Mg Tablet PO 20 mg Q12HR DONTA Administration Meloxicam 7.5 mg 08/08/23 08:00 08/08/23 08:17 Meloxicam 7.5 Mg Tablet PO 7.5 mg DAILY@0800 DONTA Administration
--- NOTE | 2023-08-08 11:21 | PM.DS ---
DS: Admitting Diagnosis Discharge Date 08/08/2023 Admitting Diagnosis advanced primary osteoarthritis left knee joint discharge diagnosis same status post left total knee arthroplasty. DS: Summary Hospital Course Hospital Course: The patient was mid postop overnight for pain control and observation status post left total knee arthroplasty. Postop day 1 the patient was doing well vital signs are stable he was afebrile neurovascularly was intact wound was clean and dry calves are benign. He was up ambulating independently with a walker eating and sleeping well pain was well controlled. Had no complaints. At bedside this morning we discussed elevating his leg above the heart as much as possible being weight-bearing as tolerated he was advised not to rest in the chair or let his leg hang for more than a few minutes at a time he was to work on stretching exercises and range of motion as instructed by therapy at least 5 times a day. It is okay to get up and sit in the chair use the toilet but do not rest in the chair. He can be weight-bearing as tolerated with a walker at all times. He will leave the dressing in place x1 week he can shower with the dressing in place thin in 1 week to change the dressing call the office if he notices any problems difficulties or questions with the wound or has any other issues. He will follow up at 2 weeks postop for wound recheck with . He is advised against putting ice on the knee incision he will continue his home medication and on the other current medications that have been prescribed per the discharge orders. The patient voiced understanding and agreed with the above plan. He is discharged to home in good condition on a general diet. Time Spent with Patient Time attestation: Total time spent providing and/or coordinating discharge services: DS: Data Data Completed and Pending Labs on day of discharge: Labs from last 24 hours 08/08/23 08/07/23 06:29 12:16 WBC 15.0 H RBC 3.94 L Hgb 12.2 L Hct 35.9 L MCV 91.1 MCH 31.0 MCHC 34.0 RDW 12.8 Plt Count 196 MPV 9.7 Immature Gran % (Auto) 0.5 Neut % (Auto) 77.0 H Lymph % (Auto) 14.7 L [place] % (Auto) 7.6 Eos % (Auto) 0.1 Baso % (Auto) 0.1 L Lymph # (Auto) 2.20 [place] # (Auto) 1.1 H Eos # (Auto) 0.0 Baso # (Auto) 0.0 Abs Immat Gran (auto) 0.07 H Absolute Neuts (auto) 11.5 H Absolute Nucleated RBC 0.0 Nucleated RBC % 0.0 Sodium 137 Potassium 4.5 Chloride 104 Carbon Dioxide 26 Anion Gap 7 L BUN 21 H Creatinine 0.80 Estim Creat Clear Calc 88 Estimated GFR > 60 Glucose 125 H POC Capillary Glucose 197 H Calcium 8.9 Total Bilirubin 0.7 AST 24 ALT 25 Alkaline Phosphatase 41 Total Protein 6.0 L Albumin 4.0 Procedures/Treatments: Left total knee arthroplasty Discharge Plan Discharge Patient Disposition: Home, Self-Care Discharge Instructions: RACHEL LEY M.D [facility], [address] [address] POST-OPERATIVE DISCHARGE INSTRUCTIONS TOTAL KNEE ARTHROPLASTY 1. When resting, do not rest in the chair.When resting, lie on your back, with back flat on the couch or bed, with leg elevated above heart to minimize swelling. You may put a pillow under your head. . Significant swelling could indicate a blood clot and if this occurs call the office (or go to the ER) to have a venous ultrasound. Therefore, do not rest in a chair. 2. At least five times a day spend several minutes stretching your knee into flexion while sitting in the chair and also stretching your knee out straight The abilities to bend your knee fulling and straighten your knee fully are two most important knee functions to focus on during your recovery. 3. It is ok to sit in chair to eat, use the toilet and receive a guest and to do your stretching exercises, but, sitting in a chair will cause your leg to swell. Ther
[2023-08-08 14:29] VITALS: BP 122/70; PULSE 89; RESP 20; TEMP 36.6; O2SAT 100
[2023-08-08] MEDS: CEPHALEXIN 500 MG CAPSULE PO (14:44)
--- NOTE | 2023-08-09 16:35 | WPDHPUPDATE1 ---
History and Physical Update Update Date/Time: 08/09/23 16:35 patient was evaluated and exam updated on Monday08/07/2000 23 as noted in my H and P addendum timed at 7:42 a.m.. History and Physical has been reviewed, including an updated exam of the patient. There are NO changes in the patient's condition. Risks, benefits, and alternatives have been discussed and questions answered. Patient agrees to proceed with procedure.
== END 2023-08-08 14:59 | disposition home or self-care (01) ==
LOC: ANHSURGERY 05:53 → ANH3MEDSUR 13:15
PROVIDERS: Physician Assistant Surgical; PCP Family Medicine; Visit Provider Orthopaedic Surgery
PROC: (CPT 27447; principal; 2023-08-07 07:30)
DX: M17.12 Unilateral primary osteoarthritis, left knee (principal); Z87.891 Personal history of nicotine dependence
CPT/HCPCS: 27447; 36415; 73560; 80053; 82948; 85025; 97110; 97116; 97161; 97165; 97530; 97535; A9270; C1713; C1776; J0171; J0690; J1100; J1170; J1885; J2250; J2270; J2371; J2405; J2704; J2795; J3010; J3370; J7030; J7120

== ENCOUNTER 2023-11-16 10:08 | Outpatient (CLI) | payer MEDICARE, OTHER, SELFPAY ==
--- NOTE | ~2023-11-16 | CT_ITS ---
CT Scan of the Chest without Contrast: Clinical Indication: Abnormal finding of lung field Technique: Contiguous sections were acquired throughout the chest without intravenous contrast. Dose reduction technique was used on this scan by utilizing automated exposure control and iterative recon struction technique. The dose-length product (DLP) was 168.84 mGy-cm. Findings: There is no evidence of any significant mediastinal, hilar or axillary lymphadenopathy. Coronary jonah ry calcifications are present. There is no evidence of pleural or pericardial effusion. The lungs are clear. No pulmonary nodules or infiltrates are noted. Images through the upper abdomen reveal no abnormalities. Impression: No significant abnormalities seen. Reviewed, dictated and finalized at location . Impression: No significant abnormalities seen.
== END 2023-11-16 10:09 ==
LOC: MICIMG 10:09
PROVIDERS: PCP Nurse Practitioner Family; Visit Provider Nurse Practitioner Family
DX: R91.8 Other nonspecific abnormal finding of lung field (principal)
CPT/HCPCS: 71250

== ENCOUNTER 2024-03-13 16:29 | Outpatient (CLI) | payer MEDICARE, OTHER, SELFPAY ==
--- NOTE | ~2024-03-13 | XR_ITS ---
EXAMINATION: [id number] DATE: 03/13/2024 16:40 INDICATION: Left rib pain. Pleurodynia. TECHNIQUE: A frontal view of the chest and 2 views on 3 radiographs of the left ribs were obtained. COMPARISON: Chest 2 views 06/03/2016 FINDINGS: There is no pneumonia, pleural effusion, or pneumothorax. The heart size is normal. IMPRESSION: 1. No rib fracture. Reviewed, dictated and finalized at location E. IMPRESSION: 1. No rib fracture.
== END 2024-03-13 16:30 ==
PROVIDERS: PCP Nurse Practitioner Family; Visit Provider Nurse Practitioner Family
DX: R07.81 Pleurodynia (principal)
CPT/HCPCS: 71101

== ENCOUNTER 2024-08-20 10:24 | Outpatient (CLI) | payer MEDICARE, OTHER, SELFPAY ==
--- NOTE | ~2024-08-20 | XR_ITS ---
Right foot Technique: AP, oblique, and lateral views were obtained. Clinical History: Pain Findings: No acute fracture or dislocation is seen. Osseous alignment is anatomic. Joint spaces are p reserved without erosive or degenerative change. Soft tissues are unremarkable. Impression: Unremarkable right foot radiographs. Reviewed, dictated and finalized at location . 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
== END 2024-08-20 10:25 | disposition home or self-care (01) ==
LOC: MICIMG 10:26
PROVIDERS: PCP Family Medicine; Visit Provider Student in an Organized Health Care Education/Training Program
DX: M79.671 Pain in right foot (principal); G89.29 Other chronic pain
CPT/HCPCS: 73620

== ENCOUNTER 2024-08-26 08:47 | Outpatient (CLI) | payer MEDICARE, OTHER, SELFPAY ==
--- NOTE | ~2024-08-26 | XR_ITS ---
EXAMINATION: XR hand LT min 3V DATE: 08/26/2024 09:25 INDICATION: Chronic pain at the base of the left thumb TECHNIQUE: Posteroanterior, oblique and lateral views of the left hand were obtained. COMPARISON: None. FINDINGS: Bone alignment is normal. No fracture. Polyarticular osteoarthritis, severe at the first carpometacar pal joint, moderate at the triscaphe joint and mild at the wrist, midcarpal and multiple metacarpopha langeal and interphalangeal joints. No erosions to suggest inflammatory arthritis. IMPRESSION: 1. 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 Reviewed, dictated and finalized at location B. ADOPTION COUNSELOR
--- OUTSIDE RECORDS SUMMARY | 2024-09-02 22:13 | XMS_ITS | Continuity of Care Document ---
Author Name [facility] Organization [facility] Care Team Providers Care Inner Layer Scrubber Tender Name Role Phone [facility] Unavailable Unavailable Problems Combined list of problems from [facility] and [facility] facilities. It does not include entries that were removed or entered in error. Problem Status Onset Date Problem Type Date of Resolution Comments Source Benign essential hypertension Active Condition [facility] Bilateral hearing loss Active Condition [facility] Elevated blood-pressure reading without diagnosis of hypertension Active Condition [facility] Family history of colorectal cancer Active Condition [facility] Hyperlipidemia Active Condition [facility] Type 2 diabetes mellitus Active Condition [facility] Diagnosis: ICD-10-CM H90.3 Sensorineural hearing loss, bilateral Active Diagnosis [facility] Diagnosis: ICD-10-CM Z23 Encounter for immunization Active Diagnosis [facility] Diagnosis: ICD-10-CM E11.9 Type 2 diabetes mellitus without complications Active Diagnosis [facility] Medications Combined list of outpatient medications from [facility] and [facility] facilities.Medications provided include 1) outpatient medications from the last 15 months, and 2) patient-reported medications. Medication Details Route Status Patient Instructions Prescription Expires Prescription Number Last Dispense Date Ordering Provider Order Date Order Qty Source CHOLECALCIF DIEGO 50MCG (2,000UNIT) TAB TAKE ONE TABLET BY MOUTH ONCE A DAY ORAL ACTIVE JENNIFER,FIONA A D 2021 [facility] CYANOCOBALA MIN 1000MCG TAB TAKE ONE TABLET BY MOUTH ONCE A DAY ORAL ACTIVE JENNIFER,FIONA A D 2021 [facility] FISH OIL 1000MG (500MG DHA/EPA) CAP,ORAL TAKE 1 CAPSULE BY MOUTH TWICE A DAY ORAL ACTIVE JENNIFER,FIONA A D 2021 [facility] METFORMIN HCL 500MG 24HR TAB,SA TAKE TWO TABLETS BY MOUTH ONCE A DAY ORAL ACTIVE JENNIFER,FIONA A D 2023 [facility] MULTIVITAMI NS CAP/TAB TAKE ONE TABLET BY MOUTH ONCE A DAY ORAL ACTIVE JENNIFERFIONA Benitez D 2021 [facility] OLMESARTAN MEDOXOMIL 40MG TAB TAKE ONE-HALF TABLET BY MOUTH ONCE A DAY ORAL ACTIVE JENNIFERFIONA D 2022 [facility] SIMVASTATIN 80MG TAB TAKE ONE-HALF TABLET BY MOUTH EVERY EVENING ORAL ACTIVE JENNIFERFIONA Benitez D 2023 [facility] Allergies, Adverse Reactions, Alerts Combined list of allergies from Department of [facility] and [facility] facilities. It does not include entries that were removed or entered in error. Substance Category Reaction Severity Reaction type Status Date Reported Comments Source PENICILLIN Propensity to adverse reactions to drug (finding) Anaphylaxis active 2 [facility] SULFA DRUGS Propensity to adverse reactions to drug (finding) Anaphylaxis active 2 [facility] Immunizations Combined list of available immunizations from the Department of [facility] and [facility] facilities. Immunization Series Date Given Administered By Site Reaction Lot Number CVX Code Drug Data Center Manager Status Comments Source INFLUENZA, UNSPECIFIED FORMULATION 2022 88 complet ed [facility] N Results Combined list of recent chemistry, hematology and other laboratory results from [facility] and [facility], ranging from 15 months to all on record, depending upon the facility. Order Name Results Value Reference Range Date Interpretation Specimen Comments Source GLUCOSE,B LOOD-poct ([facility]) GLUCOSE [MASS/VOLUM E] IN BLOOD BY AUTOMATED TEST STRIP 140 mg/dL 72 - 99 09/22 H Specimen Type: BLOOD Comment: Test Performed by: [id number] Meter #: [id number] Ordering Provider: FANTA RODRIGUEZ Report Released Date/Time: Sep 22, 2023 03:49 PM Reporting Lab: [address] [phone] Performing Lab: [address] [phone] [facility] CBC LEUKOCYTES [#/VOLUME] IN BLOOD BY AUTOMATED COUNT 6.2 10*3/u L 3.6 - 11.2 09/19 Specimen Type: BLOOD No comment entered. Ordering Provider: FANTA RODRIGUEZ Report Released Date/Time: Sep 13, 2023 08:50 PM Reporting Lab: [address] [address] Performing Lab: [address] [phone] [facility] CBC ERYTHROCYTE S [#/VOLUME] IN BLOOD BY AUTOMATED COUNT 4.71 10*6/u L 4.10 - 5.70 09/19 Specimen Type: BLOOD No comment entered. Ordering Provider: FANTA RODRIGUEZ Report Released Date/Time: Sep 13, 2023 08:50 PM Reporting Lab: [address] [phone] Performing Lab: [address] [phone] [place] [address] CBC HEMOGLOBIN [MASS/VOLUM E] IN BLOOD 14.1 g/dL 13.1 - 16.8 09/19 Specimen Type: BLOOD No comment entered. Ordering Provider: FANTA RODRIGUEZ Report Released Date/Time: Sep 13, 2023 08:50 PM Reporting Lab: [address] [phone] Performing Lab: [address] [phone] [facility] CBC HEMATOCRIT [VOLUME FRACTION] OF BLOOD 42.7 38.2 - 48.4 09/19 Specimen Type: BLOOD No comment entered. Ordering Provider: FANTA RODRIGUEZ Report Released Date/Time: Sep 13, 2023 08:50 PM Reporting Lab: [address] [phone] Performing Lab: [address] [phone] [facility] CBC MCV [ENTITIC VOLUME] BY AUTOMATED COUNT 90.7 fL 80.0 - 100.0 09/19 Specimen Type: BLOOD No comment entered. Ordering Provider: FANTA RODRIGUEZ Report Released Date/Time: Sep 13, 2023 08:50 PM Reporting Lab: [address] [phone] Performing Lab: [facility] [address] [facility] [address] [facility] CBC MCH [ENTITIC MASS] BY AUTOMATED COUNT 29.9 pg 27.0 - 34.0 09/19 Specimen Type: BLOOD No comment entered. Ordering Provider: FANTA RODRIGUEZ Report Released Date/Time: Sep 13, 2023 08:50 PM Reporting Lab: [facility] [address] [place] [phone] Performing Lab: [address] [phone] [facility] CBC MCHC [MASS/VOLUM E] BY AUTOMATED COUNT 33.0 g/dL 33.0 - 36.0 09/19 Specimen Type: BLOOD No comment entered. Ordering Provider: FANTA RODRIGUEZ Report Released Date/Time: Sep 13, 2023 08:50 PM Reporting Lab: [facility] [address] [place] [phone] Performing Lab: [address] [address] [facility] CBC PLATELETS [#/VOLUME] IN BLOOD BY AUTOMATED COUNT 248 10*3/u L 150 - 400 09/19 Specimen Type: BLOOD No comment entered. Ordering Provider: FANTA RODRIGUEZ Report Released Date/Time: Sep 13, 2023 08:50 PM Reporting Lab: [facility] [address] [place] [phone] Performing Lab: [facility] [address] [place] [phone] [facility] CBC PLATELET MEAN VOLUME [ENTITIC VOLUME] IN BLOOD BY AUTOMATED COUNT 10.4 fL 7.5 - 11.2 09/19 Specimen Type: BLOOD No comment entered. Ordering Provider: FANTA RODRIGUEZ Report Released Date/Time: Sep 13, 2023 08:50 PM Reporting Lab: [facility] [address] [place] [phone] Performing Lab: [place] [id number] [facility] [phone] [facility] CBC ERYTHROCYTE DISTRIBUTIO N WIDTH [RATIO] BY AUTOMATED COUNT 13.2 11.8 - 15.1 09/19 Specimen Type: BLOOD No comment entered. Ordering Provider: FANTA RODRIGUEZ Report Released Date/Time: Sep 13, 2023 08:50 PM Reporting Lab: [facility] [address] [place] [phone] Performing Lab: [facility] [address] [place] [phone] [facility] CBC LYMPHOCYTES /100 LEUKOCYTES IN BLOOD BY AUTOMATED COUNT 34 09/19 Specimen Type: BLOOD No comment entered. Ordering Provider: FANTA RODRIGUEZ Report Released Date/Time: Sep 13, 2023 08:50 PM Reporting Lab: [address] [address] Performing Lab: [facility] [address] [place] [phone] [facility] CBC MONOCYTES/1 00 LEUKOCYTES IN BLOOD BY AUTOMATED COUNT 8 09/19 Specimen Type: BLOOD No comment entered. Ordering Provider: FANTA RODRIGUEZ Report Released Date/Time: Sep 13, 2023 08:50 PM Reporting Lab: [facility] [address] [place] [phone] Performing Lab: [facility] [address] [place] [phone] [facility] CBC NEUTROPHILS /100 LEUKOCYTES IN BLOOD BY AUTOMATED COUNT 57 09/19 Specimen Type: BLOOD No comment entered. Ordering Provider: FANTA RODRIGUEZ Report Released Date/Time: Sep 13, 2023 08:50 PM Reporting Lab: [facility] [address] [place] [phone] Performing Lab: [facility] [address] [place] [phone] [facility] CBC EOSINOPHILS /100 LEUKOCYTES IN BLOOD BY AUTOMATED COUNT 1 09/19 Specimen Type: BLOOD No comment entered. Ordering Provider: FANTA RODRIGUEZ Report Released Date/Time: Sep 13, 2023 08:50 PM Reporting Lab: [facility] [address] [place], [place] [phone] Performing Lab: [facility] [address] [place] [phone] [place] [address] CBC BASOPHILS/1 00 LEUKOCYTES IN BLOOD BY AUTOMATED COUNT 0 09/19 Specimen Type: BLOOD No comment entered. Ordering Provider: FANTA RODRIGUEZ Report Released Date/Time: Sep 13, 2023 08:50 PM Reporting Lab: [facility] [address] [place] [address] Performing Lab: [facility] [address] [place] [address] CBC LYMPHOCYTES [#/VOLUME] IN BLOOD BY AUTOMATED COUNT 2.07 10*3/u L 0.77 - 4.50 09/19 Specimen Type: BLOOD No comment entered. Ordering Provider: FANTA RODRIGUEZ Report Released Date/Time: Sep 13, 2023 08:50 PM Reporting Lab: [facility] [address] [place] [address] Performing Lab: [facility] [address] [place] [phone] CBC MONOCYTES [#/VOLUME] IN BLOOD BY AUTOMATED COUNT 0.51 10*3/u L 0.19 - 0.80 09/19 Specimen Type: BLOOD No comment entered. Ordering Provider: FANTA RODRIGUEZ Report Released Date/Time: Sep 13, 2023 08:50 PM Reporting Lab: [facility] [address] [place] [phone] Performing Lab: [facility] [address] [place], [place] [phone] [address] CBC NEUTROPHILS [#/VOLUME] IN BLOOD BY AUTOMATED COUNT 3.50 10*3/u L 2.10 - 8.00 09/19 Specimen Type: BLOOD No comment entered. Ordering Provider: FANTA RODRIGUEZ Report Released Date/Time: Sep 13, 2023 08:50 PM Reporting Lab: [facility] [address] [place] [phone] Performing Lab: [facility] [address] [place] [phone] [place] [address] CBC EOSINOPHILS [#/VOLUME] IN BLOOD BY AUTOMATED COUNT 0.08 10*3/u L 0.00 - 0.60 09/19 Specimen Type: BLOOD No comment entered. Ordering Provider: FANTA RODRIGUEZ Report Released Date/Time: Sep 13, 2023 08:50 PM Reporting Lab: [facility] [address] [place] [phone] Performing Lab: [facility] [address] [place] [phone] CBC BASOPHILS [#/VOLUME] IN BLOOD BY AUTOMATED COUNT 0.02 10*3/u L 0.00 - 0.20 09/19 Specimen Type: BLOOD No comment entered. Ordering Provider: FANTA RODRIGUEZ Report Released Date/Time: Sep 13, 2023 08:50 PM Reporting Lab: [facility] [address] [place] [phone] Performing Lab: [facility] [address] [place] [address] [phone] [place] [address] COMPREHEN SIVE METABOLIC PANEL CREATININE [MASS/VOLUM E] IN SERUM OR PLASMA 1.08 mg/dL 0.7 - 1.3 09/19 Specimen Type: PLASMA Comment: No hemolysis noted. Ordering Provider: FANTA RODRIGUEZ Report Released Date/Time: Sep 13, 2023 08:50 PM Reporting Lab: [facility] [address] [place] [phone] Performing Lab: [facility] [address] [place] [phone] [place] [address] COMPREHEN SIVE METABOLIC PANEL UREA NITROGEN [MASS/VOLUM E] IN SERUM OR PLASMA 21.8 mg/dL 9.0 - 25.0 09/19 Specimen Type: PLASMA Comment: No hemolysis noted. Ordering Provider: FANTA RODRIGUEZ Report Released Date/Time: Sep 13, 2023 08:50 PM Reporting Lab: [facility] [address] [place] [phone] Performing Lab: [facility] [address] [place] [phone] [facility] COMPREHEN SIVE METABOLIC PANEL GLUCOSE [MASS/VOLUM E] IN SERUM OR PLASMA 177 mg/dL 72 - 99 09/19 H Specimen Type: PLASMA Comment: No hemolysis noted. Ordering Provider: FANTA RODRIGUEZ Report Released Date/Time: Sep 13, 2023 08:50 PM Reporting Lab: [address] [phone] Performing Lab: [address] [phone] [facility] COMPREHEN SIVE METABOLIC PANEL SODIUM [MOLES/VOLU ME] IN SERUM OR PLASMA 138 meq/L 136 - 145 09/19 Specimen Type: PLASMA Comment: No hemolysis noted. Ordering Provider: FANTA RODRIGUEZ Report Released Date/Time: Sep 13, 2023 08:50 PM Reporting Lab: [facility] [address] [place] [phone] Performing Lab: [facility] [address] [place] [phone] [facility] COMPREHEN SIVE METABOLIC PANEL POTASSIUM [MOLES/VOLU ME] IN SERUM OR PLASMA 5.3 meq/L 3.5 - 5 09/19 H Specimen Type: PLASMA Comment: No hemolysis noted. Ordering Provider: FANTA RODRIGUEZ Report Released Date/Time: Sep 13, 2023 08:50 PM Reporting Lab: [facility] [address] [place] [phone] Performing Lab: [facility] [address] [place] [phone] [facility] COMPREHEN SIVE METABOLIC PANEL CHLORIDE [MOLES/VOLU ME] IN SERUM OR PLASMA 100 meq/L 98 - 107 09/19 Specimen Type: PLASMA Comment: No hemolysis noted. Ordering Provider: FANTA RODRIGUEZ Report Released Date/Time: Sep 13, 2023 08:50 PM Reporting Lab: [facility] [address] [place] [phone] Performing Lab: [facility] [address] [place] [phone] [facility] COMPREHEN SIVE METABOLIC PANEL CARBON DIOXIDE, TOTAL [MOLES/VOLU ME] IN SERUM OR PLASMA 27 meq/L 22 - 31 09/19 Specimen Type: PLASMA Comment: No hemolysis noted. Ordering Provider: FANTA RODRIGUEZ Report Released Date/Time: Sep 13, 2023 08:50 PM Reporting Lab: [facility] [address] [place] [phone] Performing Lab: [facility] [address] [place] [phone] [place] [address] COMPREHEN SIVE METABOLIC PANEL CALCIUM [MASS/VOLUM E] IN SERUM OR PLASMA 10.2 mg/dL 8.4 - 10.4 09/19 Specimen Type: PLASMA Comment: No hemolysis noted. Ordering Provider: FANTA RODRIGUEZ Report Released Date/Time: Sep 13, 2023 08:50 PM Reporting Lab: [facility] [address] [place] [phone] Performing Lab: [facility] [address] [place] [phone] [facility] COMPREHEN SIVE METABOLIC PANEL PROTEIN [MASS/VOLUM E] IN SERUM OR PLASMA 7.4 g/dL 6 - 8.6 09/19 Specimen Type: PLASMA Comment: No hemolysis noted. Ordering Provider: FANTA RODRIGUEZ Report Released Date/Time: Sep 13, 2023 08:50 PM Reporting Lab: [facility] [address] [place] [phone] Performing Lab: [facility] [address] [place] [phone] [facility] COMPREHEN SIVE METABOLIC PANEL ALBUMIN [MASS/VOLUM E] IN SERUM OR PLASMA 4.6 g/dL 3.4 - 5 09/19 Specimen Type: PLASMA Comment: No hemolysis noted. Ordering Provider: FANTA RODRIGUEZ Report Released Date/Time: Sep 13, 2023 08:50 PM Reporting Lab: [address] [phone] Performing Lab: [address] [phone] [facility] COMPREHEN SIVE METABOLIC PANEL BILIRUBIN.T OTAL [MASS/VOLUM E] IN SERUM OR PLASMA 0.8 mg/dL 0.2 - 1.2 09/19 Specimen Type: PLASMA Comment: No hemolysis noted. Ordering Provider: FANTA RODRIGUEZ Report Released Date/Time: Sep 13, 2023 08:50 PM Reporting Lab: [address] [phone] Performing Lab: [address] [phone] [place] [address] COMPREHEN SIVE METABOLIC PANEL ALKALINE PHOSPHATASE [ENZYMATIC ACTIVITY/VO LUME] IN SERUM OR PLASMA 62 U/L 40 - 150 09/19 Specimen Type: PLASMA Comment: No hemolysis noted. Ordering Provider: FANTA RODRIGUEZ Report Released Date/Time: Sep 13, 2023 08:50 PM Reporting Lab: [address] [phone] Performing Lab: [address] [phone] [facility] COMPREHEN SIVE METABOLIC PANEL ASPARTATE AMINOTRANSF ERASE [ENZYMATIC ACTIVITY/VO LUME] IN SERUM OR PLASMA 25 U/L 5 - 34 09/19 Specimen Type: PLASMA Comment: No hemolysis noted. Ordering Provider: FANTA RODRIGUEZ Report Released Date/Time: Sep 13, 2023 08:50 PM Reporting Lab: [address] [phone] Performing Lab: [address] [phone] [facility] METABOLIC PANEL ALANINE AMINOTRANSF ERASE [ENZYMATIC ACTIVITY/VO LUME] IN SERUM OR PLASMA 26 U/L 8 - 40 09/19 Specimen Type: PLASMA Comment: No hemolysis noted. Ordering Provider: FANTA RODRIGUEZ Report Released Date/Time: Sep 13, 2023 08:50 PM Reporting Lab: [facility] [address] [place] [phone] Performing Lab: [address] [phone] [facility] COMPREHEN SIVE METABOLIC PANEL GLOMERULAR FILTRATION RATE/1.73 SQ M.PREDICTED [VOLUME RATE/AREA] IN SERUM, PLASMA OR BLOOD BY CREATININE- BASED FORMULA (CKD-EPI 2020) 74.3 60 09/19 Specimen Type: PLASMA Comment: No hemolysis noted. Ordering Provider: FANTA RODRIGUEZ Report Released Date/Time: Sep 13, 2023 08:50 PM Reporting Lab: [facility] [address] [place] [phone] Performing Lab: [facility] [address] [place] [phone] [facility] HGA1C HEMOGLOBIN A1C/HEMOGLO BIN.TOTAL IN BLOOD 6.6 4.0 - 6.0 09/19 H Specimen Type: BLOOD No comment entered. Ordering Provider: FANTA RODRIGUEZ Report Released Date/Time: Sep 13, 2023 08:50 PM Reporting Lab: [facility] [address] [place] [phone] Performing Lab: [facility] [address] [place] [phone] [facility] LIPID PANEL (STL) CHOLESTEROL [MASS/VOLUM E] IN SERUM OR PLASMA 196 mg/dL 0 - 200 09/19 Specimen Type: PLASMA Comment: No hemolysis noted. Ordering Provider: FANTA RODRIGUEZ Report Released Date/Time: Sep 13, 2023 08:50 PM Reporting Lab: [facility] [address] [place] [phone] Performing Lab: [facility] [place] [address] [phone] [facility] LIPID PANEL (STL) TRIGLYCERID E [MASS/VOLUM E] IN SERUM OR PLASMA 183 mg/dL 0 - 150 09/19 H Specimen Type: PLASMA Comment: No hemolysis noted. Ordering Provider: FANTA RODRIGUEZ Report Released Date/Time: Sep 13, 2023 08:50 PM Reporting Lab: [address] [phone] Performing Lab: [address] [phone] [facility] LIPID PANEL (STL) CHOLESTEROL IN LDL [MASS/VOLUM E] IN SERUM OR PLASMA BY CALCULATION 115 mg/dL 09/19 Specimen Type: PLASMA Comment: No hemolysis noted. Ordering Provider: FANTA RODRIGUEZ Report Released Date/Time: Sep 13, 2023 08:50 PM Reporting Lab: [address] [phone] Performing Lab: [address] [phone] [facility] LIPID PANEL (STL) CHOLESTEROL IN HDL [MASS/VOLUM E] IN SERUM OR PLASMA 44 mg/dL 40 09/19 Specimen Type: PLASMA Comment: No hemolysis noted. Ordering Provider: FANTA RODRIGUEZ Report Released Date/Time: Sep 13, 2023 08:50 PM Reporting Lab: [address] [phone] Performing Lab: [address] [phone] [facility] MICRAL/CR EAT PROFILE (STL) ALBUMIN [MASS/VOLUM E] IN URINE 6.9 mg/L 09/19 Specimen Type: URINE No comment entered. Ordering Provider: FANTA RODRIGUEZ Report Released Date/Time: Sep 13, 2023 08:50 PM Reporting Lab: [address] [phone] Performing Lab: [address] [place] [phone] [place] [address] MICRAL/CR EAT PROFILE (STL) ALBUMIN/CRE ATININE [MASS RATIO] IN URINE 7 mg/g 0 - 29 09/19 Specimen Type: URINE No comment entered. Ordering Provider: FANTA RODRIGUEZ Report Released Date/Time: Sep 13, 2023 08:50 PM Reporting Lab: [place] [phone] Performing Lab: [place] [phone] MICRAL/CR EAT PROFILE (STL) CREATININE [MASS/VOLUM E] IN URINE 94.8 mg/dL 63 - 166 09/19 Specimen Type: URINE No comment entered. Ordering Provider: FANTA RODRIGUEZ Report Released Date/Time: Sep 13, 2023 08:50 PM Reporting Lab: [address] [phone] Performing Lab: [address] [phone] PROST. SPECIFIC AG.(PB-ST L) PROSTATE SPECIFIC AG [MASS/VOLUM E] IN SERUM OR PLASMA 0.231 ng/mL 0 - 4 09/19 Specimen Type: SERUM Comment: The listed sex of this patient may not be a typical indication for this test. Therefore, reference ranges or interpretiv e criteria listed may not be valid. Clinical correlation suggested. Ordering Provider: FANTA RODRIGUEZ Report Released Date/Time: Sep 13, 2023 08:50 PM Reporting Lab: [address] [phone] Performing Lab: [address] GLUCOSE,B LOOD-poct (STL) GLUCOSE [MASS/VOLUM E] IN BLOOD BY AUTOMATED TEST STRIP 202 mg/dL 72 - 99 09/22 H Specimen Type: BLOOD Comment: Test Performed by: [id number] Meter #: [id number] Ordering Provider: FANTA RODRIGUEZ Report Released Date/Time: Sep 22, 2022 03:57 PM Reporting Lab: [facility] [address] [facility] [phone] Performing Lab: [facility] [address] [facility] [phone] [facility] Vital Signs Combined list of inpatient and outpatient Vital Signs from Department of [facility] and [facility], ranging from 12 months to all on record, depending upon the facility. Vital Sign Value Date Comments Source SYSTOLIC BLOOD PRESSURE 132 09/22/2023 10:59:31 [facility] DIASTOLIC BLOOD PRESSURE 79 09/22/2023 10:59:31 [facility] PULSE OXIMETRY 68% 09/22/2023 10:59:31 [facility] WEIGHT 207 09/22/2023 10:59:31 [facility] BMI 27kg/m2 09/22/2023 10:59:31 [facility] PAIN 1 09/22/2023 10:59:31 [facility] HEIGHT 74 09/22/2023 10:59:31 [facility] TEMPERATURE 98.2 09/22/2023 10:59:31 [facility] PULSE 68 09/22/2023 10:59:31 [facility] RESPIRATION 18 09/22/2023 10:59:31 [facility] Encounters Combined list of: 1) Encounters from [facility] facilities going back up to thelast 18 months. 2) Encounters from the Department of [facility] facilities going back up to 280 months. Location Location Details Encounter Type Encounter Number Reason For Visit Attending Provider ADM Date DC Date Status Disposition Source [facility] Outpatient Encounter [id number] 06/04 [facility] Outpatient Encounter [id number] 06/26 [facility] Outpatient Encounter [id number] 08/04 [facility] Outpatient Encounter [id number] FANTA RODRIGUEZ 09/15 [facility] Outpatient Encounter [id number] 09/22 [facility] OFFICE O/P EST MOD 30 MIN [id number] Diagnos is: ICD-10- CM E11.9 Type 2 diabete s mellitu s without complic ations< br/> FANTA RODRIGUEZ D 09/22 [facility] Outpatient Encounter [id number] 09/22 [facility] Outpatient Encounter [id number] 09/22 [facility] Outpatient Encounter [id number] 10/30 [facility] Outpatient Encounter [id number] 11/05 [facility] COMPREHENS KARLO HEARING TEST [id number] Diagnos is: ICD-10- CM H90.3 Sensori neural hearing loss, bilater al
VEST,JOCELYN A 11/30 [facility] HEARING AID EXAM BOTH EARS [id number] Diagnos is: ICD-10- CM H90.3 Sensori neural hearing loss, bilater al
VEST,JOCELYN A 11/30 [facility] FLU IMMUNIZE ORDER/ADMI N [id number] Diagnos is: ICD-10- CM Z23 Encount er for immuniz ation<b r/> JESSICAMARILYNN RA 12/07 [facility] HEARING AID FITTING/CH ECKING [id number] Diagnos is: ICD-10- CM H90.3 Sensori neural hearing loss, bilater al
NICA ADAMSON B 02/12 [facility] Social History Combined list of available smoking, tobacco, and other social history from [facility] and [facility] facilities. Social History Type Response Date Comment Sourc e Tobacco smoking status NHIS DE-TOBACCO FORMER USER 09/22/2023 [facility] History of tobacco use DE-TOBACCO QUIT 15 YRS OR MORE 09/22/2023 [facility] History of tobacco use DE-TOBACCO FORMER USER 09/22/2022 [facility] History of tobacco use DE-TOBACCO FORMER USER 09/29/2021 [facility] Plan of Care List of future care activities from [facility] facilities. Additional future care activities may be listed in the Assessment and Plan section. 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 SPECIFIC AG.(PB-STL) GOLD/RED SST SERUM [facility] 09/05/2024 Laboratory - School Psychology Professor ry Order HGA1C BLOOD 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 09/05/2024 Laboratory - School Psychology Professor ry Order COMPREHENSIVE METABOLIC PANEL GREEN LI/HEP BLD/PLAS PLASMA [facility]
== END 2024-08-26 08:48 | disposition home or self-care (01) ==
PROVIDERS: PCP Family Medicine; Visit Provider Plastic Surgery
DX: M18.12 Unilateral primary osteoarthritis of first carpometacarpal joint, left hand (principal)
CPT/HCPCS: 73130

== ENCOUNTER 2025-02-04 15:18 | Outpatient (CLI) | payer MEDICARE, OTHER, SELFPAY ==
--- NOTE | ~2025-02-04 | XR_ITS ---
XR hand RT min 3V 02/04/2025 15:45 Indication: Right hand pain Procedure: 4 views right hand Comparison: 02/21/2023 Findings: Mild polyarticular osteoarthritis. No fracture, subluxation or dislocation. No focal soft t issue abnormality. No foreign bodies. Impression: 1: No acute bone or joint abnormality. 2 mild polyarticular osteoarthritis. Reviewed, dictated and finalized at location A. Impression: 1: No acute bone or joint abnormality. 2 mild polyarticular osteoarthritis.
== END 2025-02-04 15:19 | disposition home or self-care (01) ==
PROVIDERS: PCP Nurse Practitioner Family; Visit Provider Plastic Surgery
DX: M19.041 Primary osteoarthritis, right hand (principal)
CPT/HCPCS: 73130

== ENCOUNTER 2025-06-30 11:19 | Outpatient (CLI) | payer MEDICARE, OTHER, SELFPAY ==
--- NOTE | ~2025-06-30 | XR_ITS ---
EXAMINATION: XR hand RT min 3V, 06/30/2025 11:40 CDT HISTORY: M79.641 - Pain in right hand COMPARISON: No comparisons available. Findings: No acute fracture or malalignment. No significant degenerative changes. Soft tissues unremarkable. Impression: No acute fracture or malalignment. Reviewed, dictated and finalized at location P. Impression: No acute fracture or malalignment.
== END 2025-06-30 11:20 | disposition home or self-care (01) ==
PROVIDERS: PCP Family Medicine; Visit Provider Plastic Surgery
DX: M79.641 Pain in right hand (principal)
CPT/HCPCS: 73130

== ENCOUNTER 2025-07-30 09:29 | Outpatient (CLI) | payer MEDICARE, OTHER, SELFPAY ==
--- NOTE | ~2025-07-30 | MR_ITS ---
EXAMINATION: MR hand RT wo con DATE: 07/30/2025 10:12 INDICATION: Dorsal pain at the third metatarsophalangeal joint concerning for sprain or extensor tendon tear. TECHNIQUE: Magnetic resonance imaging (MRI) of the right hand was performed without intravenous contrast. A marker was placed over the region of concern. Sequences included axial T1-weighted FSE, axial T2-weighted FS FSE, coronal T1- weighted FSE, coronal T2-weighted FS FSE, sagittal T1-weighted FSE and sagittal T2-weighted FS FSE. COMPARISON: Right hand radiographs dated 06/30/2025 FINDINGS: Bone alignment is normal. There is thickening and mild increased signal of the radial collateral ligament at the third metacarpophalangeal joint with increased signal likely related to small amount of dystrophic calcification at this location seen on the prior radiographs suggesting chronic degeneration of the ligament. Mild increased marrow signal and small erosion versus mild cystic change at the footplate along the radial side of the head of the third metacarpal. Similar mild marrow edema seen at the radial side of the head of the second metacarpal with additional mild thickening and mild increased signal of the radial collateral ligament complex. No clear ligament tears. The remaining collateral ligament complex at the metacarpophalangeal and interphalangeal joints are normal. There is additional likely osteoarthritis related cystic and edema-like marrow signal changes at the lunate, distal pole of the scaphoid to lesser degree at the trapezoid. Marrow signal is otherwise normal throughout. No fracture or pathologic marrow replacing process. The flexor and extensor tendons are normal. IMPRESSION: 1. 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 2. 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 Reviewed, dictated and finalized at location A. EM DRAWER IN IMPRESSION: 1. Likely chronic degeneration without clearly defined tear is of the radial co llateral ligament complexes at the second and third metacarpophalangeal joints. 2. Likely osteoarthritis related subarticular cystlike and edema-like marrow si gnal changes in the carpus.
== END 2025-07-30 09:30 | disposition home or self-care (01) ==
PROVIDERS: PCP Family Medicine; Visit Provider Plastic Surgery
DX: M70.11 Bursitis, right hand (principal); M19.91 Primary osteoarthritis, unspecified site; S63.659A Sprain of metacarpophalangeal joint of unspecified finger, initial encounter; X58.XXXA Exposure to other specified factors, initial encounter
CPT/HCPCS: 73218